=== PATIENT | male | born 1950 | race Caucasian/White ===

== ENCOUNTER 2016-12-14 04:11 | Inpatient (IN) | payer MEDICARE, BC ==
[~2016-12-14] VITALS: Ht 172.7 cm; Wt 81.0 kg
[2016-12-14] VITALS (11 sets, daily range): BP systolic 106–149; BP diastolic 59–74; PULSE 45–72; RESP 16–24; TEMP 97.2–97.9; O2SAT 94–100
[2016-12-14] MEDS ORDERED: SODIUM CHLORIDE 0.9% FLUSH 5 ML FLUSH IVF PRN (04:30)
[2016-12-14] MEDS ORDERED: ASPI81TA81 PO (04:46)
[2016-12-14] MEDS ORDERED: METO-309 PO (04:46)
[2016-12-14] MEDS ORDERED: LOSA50TA PO (04:46)
[2016-12-14] MEDS ORDERED: LIPI80TA PO (04:46)
[2016-12-14] MEDS ORDERED: DIOV80TA4 PO (04:46)
[2016-12-14] MEDS ORDERED: ASPI81TA19 (04:46)
[2016-12-14] MEDS ORDERED: ZETI10TA5 PO (04:46)
[2016-12-14 04:55] LABS: AUTOMATED NEUTROPHIL # 3.8 TH/MM3 (1.8-7.7); BASOPHIL % 0.5 % (0.0-2.0); EOSINOPHIL # 0.2 TH/MM3 (0-0.4); EOSINOPHIL % 2.3 % (0.0-4.0); HEMATOCRIT 42.5 % (39.0-51.0); HEMO FLAGS DIFF FINAL; LYMPH % 36.5 % (9.0-44.0); LYMPHOCYTE # 2.7 TH/MM3 (1.0-4.8); MEAN CELL VOLUME 95.7 FL (80.0-100.0); MEAN CORPUSCULAR HEMOGLOBIN 32.9 PG (27.0-34.0); MEAN CORPUSCULAR HGB CONC 34.4 % (32.0-36.0); MONO % 9.5 % (0.0-8.0); NEUT % 51.2 % (16.0-70.0); PLATELET COUNT 155 TH/MM3 (150-450); RED BLOOD COUNT 4.44 MIL/MM3 (4.50-5.90); RED CELL DISTRIBUTION WIDTH 14.1 % (11.6-17.2); WHITE BLOOD COUNT 7.4 TH/MM3 (4.0-11.0)
[2016-12-14 05:08] LABS: APTT (PATIENT) 25.2 SEC (24.3-30.1)
--- NOTE | 2016-12-14 05:09 | RADRPT ---
EXAM DATE/TIME: 12/14/2016 04:43 [facility] COMPARISON: No previous studies available for comparison. INDICATIONS : Shortness of breath. MEDICAL HISTORY : None. SURGICAL HISTORY : CABG. ENCOUNTER: Initial ACUITY: 1 day PAIN SCORE: 0/10 LOCATION: Bilateral chest FINDINGS: A single view of the chest demonstrates cardiomegaly. Mild basilar airspace disease and interstitial prominence. No significant effusion. No pneumothorax. Postoperative median sternotomy. CONCLUSION: 1. Cardiomegaly with mild interstitial edema. Mike Heck MD on December 14, 2016 at 5:07 Board Certified Radiologist. This report was verified electronically.
--- NOTE | 2016-12-14 05:21 | PD ---
HPI Chief Complaint: Respiratory Distress Time Seen by Provider: 04:25 Travel History International Travel<30 days: No Contact w/Intl Traveler<30days: [place] Traveled to: [facility], [place], [place] Traveled to known affect area: No History of Present Illness HPI The patient is a 66 year old male who presents to the [facility] emergency department with a history of shortness of breath that he reports began on Tuesday evening when he laid down to go to sleep. The patient reports that he is visiting from [place]. He denies having any problems breathing in the past. He does however have an extensive history of coronary artery disease. The patient reports that his symptoms began to improve throughout the day on Tuesday, however again he awoke from sound sleep with shortness of breath. He reports that he had a cough productive of brown sputum. He reports that he has a history of quadruple bypass in 1996 and 2 myocardial infarctions in 1998 with 2 stents placed at that time. He reports that he had a stress test on approximately 2 weeks ago that was reportedly unremarkable. He cannot recall when he last had a cardiac catheterization. He denies having any history of congestive heart failure, DVT, or PE. He reports that he does have some chronic lower extremity edema worse in the left leg related to the vein harvest for his bypass. The patient reports that his other medical history is significant for a month ago having flulike symptoms and a week ago having significant sinus congestion that he reports has since then improved with the use of Flonase. The patient is noted to have O2 saturations on room air of 93% . He denies having any recent weight changes. The patient reports that he did travel by RV to this area. The patient denies any recent fevers, neck pain, chest pain, abdominal pain, vomiting, diarrhea, urinary symptoms, or neurologic symptoms. [facility] Past Medical History Narrative Medical The patient's past medical history is significant for hypertension, coronary artery disease, 2 prior stents being placed, coronary artery bypass grafting, history of diverticulitis, history of being borderline diabetic, history of hyperlipidemia, history of PVCs Cardiovascular Problems: Yes (HTN, AR, STENTS, CAD, CABGX4) Diminished Hearing: No Hypertension: Yes Tetanus Vaccination: < 5 Years Influenza Vaccination: Yes (2016) Past Surgical History Narrative Surgical The patient's past surgical history is significant for coronary artery bypass grafting of 4 vessels in 1996, cardiac catheterization with 2 prior stents placed last in 1998, history of a cholecystectomy. Coronary Artery Bypass Graft: Yes (1996 x 4) Social History Alcohol Use: Yes (1 glass of wine per day) Tobacco Use: No Substance Use: No Allergies-Medications (Allergen,Severity, Reaction): Coded Allergies: No Known Allergies (Unverified , 12/14/16) Reported Meds & Prescriptions Reported Meds & Active Scripts Active Reported Aspir-81 (Aspirin) 81 Mg Tabdr 81 PO DAILY Aspir-Low (Aspirin) 81 Mg Tabdr Diovan (Valsartan) 80 Mg Tab 80 Mg PO DAILY Lopressor (Metoprolol Tartrate) 50 Mg Tab 50 Mg PO DAILY Losartan (Losartan Potassium) 50 Mg Tab 50 Mg PO DAILY Zetia (Ezetimibe) 10 Mg Tab 10 Mg PO DAILY Lipitor (Atorvastatin Calcium) 80 Mg Tab 80 Mg PO DAILY Review of Systems Except as stated in HPI: all other systems reviewed are Neg General / Constitutional: No: Fever Eyes: No: Visual changes HENT: Positive: Congestion, No: Headaches Cardiovascular: Positive: Dyspnea on exertion, Edema, No: Chest Pain or Discomfort, Diaphoresis Respiratory: Positive: Cough, Shortness of Breath Gastrointestinal: No: Nausea, Vomiting, Diarrhea, Abdominal Pain Genitourinary: No: Dysuria Musculoskeletal: No: Pain Skin: No Rash Neurologic: No: Weakness Psychiatric: No: Depression Endocrine: No: Polydipsia Hematologic/Lymphatic: No: Easy Bruising Physical Exam Narrative General: The patient is a well-developed well-nourished male in no acute distress. Head and Neck exam: Head is normocephalic atraumatic. Eyes: EOMI, pupils are equal round and reactive to light. Nose: Midline septum with pink mucous membranes Mouth: Dentition unremarkable. Moist mucus membranes. Posterior oropharynx is not erythematous. No tonsillar hypertrophy. Uvula midline. Airway patent. Neck: No palpable lymphadenopathy. No nuchal rigidity. No thyromegaly. Cardiovascular: Irregularly irregular with occasional PVCs noted on the monitor without murmurs , gallops, or rubs. No pulse deficit to the extremities and simultaneous auscultation and palpation of his radial artery. Lungs: Decreased breath sounds in the bases, otherwise clear to auscultation bilaterally. No wheezes, rhonchi, or rales. Abdomen: Soft, without tenderness to palpation in all 4 quadrants of the abdomen. No guarding, rebound, or rigidity. Normal bowel sounds are audible. Extremities: No clubbing or cyanosis. Trace pedal edema in the right lower extremity, 1+ pedal edema and old left lower extremity. 2+ pulses in all 4 extremities. No calf tenderness on palpation. Back: No costovertebral angle tenderness to palpation. Neurologic Exam: Grossly nonfocal. Skin Exam: No rash noted. Intact skin that is warm and dry. Data Data Last Documented VS Vital Signs Date Time Temp Pulse Resp B/P Pulse Ox O2 Delivery O2 Flow Rate FiO2 12/14/16 06:04 58 20 141/65 96 Nasal Cannula 2 12/14/16 04:17 97.9 Orders Complete Blood Count With Diff (12/14/16 04:25) Comprehensive Metabolic Panel (12/14/16 04:25) B-Type Natriuretic Peptide (12/14/16 04:25) Act Partial Throm Time (Ptt) (12/14/16 04:25) Prothrombin Time / Inr (Pt) (12/14/16 04:25) Magnesium (Mg) (12/14/16 04:25) Ckmb (Isoenzyme) Profile (12/14/16 04:25) Troponin I (12/14/16 04:25) Urinalysis - C+S If Indicated (12/14/16 04:25) Iv Access Insert/Monitor (12/14/16 04:25) Electrocardiogram (12/14/16 04:25) Ecg Monitoring (12/14/16 04:25) Oximetry (12/14/16 04:25) Oxygen Administration (12/14/16 04:25) Chest, Single Ap (12/14/16 04:25) Sodium Chloride 0.9% Flush (Ns Flush) (12/14/16 04:30) Lipase (12/14/16 04:25) D-Dimer (12/14/16 04:35) Furosemide Inj (Lasix Inj) (12/14/16 06:15) Aspirin Chew (Aspirin Chew) (12/14/16 06:15) Nitroglycerin 2% Oint (Nitroglycerin 2% (12/14/16 06:15) Ct Pulmonary Angiogram (12/14/16 06:06) Iohexol 350 Inj (Omnipaque 350 Inj) (12/14/16 06:35) Acetaminophen (Tylenol) (12/14/16 07:00) Labs Laboratory Tests Test 12/14/16 12/14/16 04:35 06:00 White Blood Count 7.4 TH/MM3 Red Blood Count 4.44 MIL/MM3 Hemoglobin 14.6 GM/DL Hematocrit 42.5 % Mean Corpuscular Volume 95.7 FL Mean Corpuscular Hemoglobin 32.9 PG Mean Corpuscular Hemoglobin 34.4 % Concent Red Cell Distribution Width 14.1 % Platelet Count 155 TH/MM3 Mean Platelet Volume 9.6 FL Neutrophils (%) (Auto) 51.2 % Lymphocytes (%) (Auto) 36.5 % Monocytes (%) (Auto) 9.5 % Eosinophils (%) (Auto) 2.3 % Basophils (%) (Auto) 0.5 % Neutrophils # (Auto) 3.8 TH/MM3 Lymphocytes # (Auto) 2.7 TH/MM3 Monocytes # (Auto) 0.7 TH/MM3 Eosinophils # (Auto) 0.2 TH/MM3 Basophils # (Auto) 0.0 TH/MM3 CBC Comment DIFF FINAL Differential Comment Prothrombin Time 11.0 SEC Prothromb Time International 1.0 RATIO Ratio Activated Partial 25.2 SEC Thromboplast Time D-Dimer Quantitative (PE/DVT) 1.28 MG/L FEU Sodium Level 144 MEQ/L Potassium Level 3.7 MEQ/L Chloride Level 110 MEQ/L Carbon Dioxide Level 24.9 MEQ/L Anion Gap 9 MEQ/L Blood Urea Nitrogen 15 MG/DL Creatinine 0.93 MG/DL Estimat Glomerular Filtration 82 ML/MIN Rate Random Glucose 109 MG/DL Calcium Level 8.0 MG/DL Magnesium Level 1.6 MG/DL Total Bilirubin 1.3 MG/DL Aspartate Amino Transf 18 U/L (AST/SGOT) Alanine Aminotransferase 39 U/L (ALT/SGPT) Alkaline Phosphatase 81 U/L Total Creatine Kinase 56 U/L Troponin I LESS THAN 0.02 NG/ML B-Type Natriuretic Peptide 441 PG/ML Total Protein 6.8 GM/DL Albumin 3.4 GM/DL Lipase 142 U/L Urine Color YELLOW Urine Turbidity CLEAR Urine pH 5.0 Urine Specific [place] 1.022 Urine Protein NEG mg/dL Urine Glucose (UA) NEG mg/dL Urine Ketones NEG mg/dL Urine Occult Blood NEG Urine Nitrite NEG Urine Bilirubin NEG Urine Urobilinogen LESS THAN 2.0 MG/DL Urine Leukocyte Esterase NEG Urine RBC LESS THAN 1 /hpf Urine WBC 1 /hpf Urine Hyaline Casts 1 /lpf Urine Mucus FEW /lpf Microscopic Urinalysis Comment CULT NOT INDICATED MDM Medical Decision Making Medical Screen Exam Complete: Yes Emergency Medical Condition: Yes Medical Record Reviewed: Yes Interpretation(s) Last Impressions CT Angiography 12/14/16605 Signed Impressions: Service Date/Time: Wednesday, December 14, 2016 06:28 - CONCLUSION: 1. Negative for pulmonary embolus. 2. Small bilateral pleural effusions. 3. Mild to moderate centrilobular emphysema. 4. Cardiomegaly. Mike Heck MD Chest X-Ray 12/14/16 0425 Signed Impressions: Service Date/Time: Wednesday, December 14, 2016 04:43 - CONCLUSION: 1. Cardiomegaly with mild interstitial edema. Mike Heck MD Differential Diagnosis Congestive heart failurenew onset, versus acute coronary syndrome, versus pneumonia, versus pulmonary embolism Narrative Course During the course of the patients emergency department visit, the patients history, examination, and differential diagnosis were reviewed with the patient. The patient had IV access obtained and blood work sent for analysis. The patient was placed on a ekg monitor tech with oximetry and blood pressure monitoring. An EKG was done on arrival. The patient's EKG shows a sinus rhythm with frequent premature ventricular complexes, no acute ST segment elevation or depression, T waves are inverted in aVL. The patient was placed on 2 L nasal cannula O2. The patient was provided aspirin 162 mg by mouth 1. The patients laboratory studies were reviewed and remarkable for a white count of 7.4, hemoglobin 14.6, platelets 155, 9.5 monocytes, CMP is remarkable for a chloride of 110, glucose 109, calcium 8.0, total bilirubin 1.3, initial set of cardiac enzymes are negative, BNP is 441, lipase 142, PT PTT unremarkable, d- dimer 1.28, therefore CTA to rule out PE was ordered. Radiology studies were reviewed and remarkable for a chest x-ray that shows cardiomegaly with mild interstitial edema. CTA shows no evidence of PE, small bilateral pleural effusions, mild to moderate centrilobar edema, cardiomegaly. The patients results were discussed with the patient, including the plan of care. I explained that further testing and/ or monitoring is indicated based on the patients history, examination, and/ or laboratory findings. Therefore, I recommended admission for additional evaluation. The patient expressed understanding and was agreeable with this plan. The patient was admitted to the hospital in stable condition and [facility] Physician Communication Physician Communication The patient's case was discussed with Dr. Stephenson, who did agree to admit the patient for further evaluation and treatment at this time. Diagnosis Primary Impression: New onset of congestive heart failure Admitting Information Admitting Physician Requests: Case Management Jeni Murray MD Dec 14, 2016 05:21
[2016-12-14 05:22] LABS: ALT (GPT) 39 U/L (12-78); ANION GAP 9 MEQ/L (5-15); AST (GOT) 18 U/L (15-37); BICARBONATE 24.9 MEQ/L (21.0-32.0); BLOOD UREA NITROGEN 15 MG/DL (7-18); CHLORIDE 110 MEQ/L (98-107); GLOMERULAR FILTRATION RATE 82 ML/MIN (>89); MAGNESIUM 1.6 MG/DL (1.5-2.5); POTASSIUM 3.7 MEQ/L (3.5-5.1); SODIUM (NA) 144 MEQ/L (136-145)
[2016-12-14 05:26] LABS: ALKALINE PHOSPHATASE 81 U/L (45-117); TOTAL BILIRUBIN ADULT 1.3 MG/DL (0.2-1.0)
[2016-12-14 05:29] LABS: CREATINE KINASE 56 U/L (39-308)
[2016-12-14] MEDS ORDERED: ASPIRIN 81 MG CHEW TAB CHEW ONE (06:15)
[2016-12-14] MEDS ORDERED: FUROSEMIDE 40 MG/4 ML VIAL IV PUSH ONE ×2 (06:15→20:30)
[2016-12-14] MEDS ORDERED: NITROGLYCERIN 2% OINT 1 GM PACKET TOPICAL ONE (06:15)
[2016-12-14 06:28] LABS: BLOOD, URINE NEG (NEG); COMMENT (UR) CULT NOT INDICATED; CULTURE IF INDICATED CULT NOT INDICATED; GLUCOSE,URINE NEG (NEG); HYALINE CAST, URINE 1 /lpf (RARE); KETONE, URINE NEG (NEG); MUCUS URINE FEW /lpf (OCC); NITRITE,URINE NEG (NEG); URINE COLOR YELLOW (YELLW/STRAW)
[2016-12-14] MEDS ORDERED: IOHEXOL 350 MG/ML 10 ML VIAL (for RAD DIAG) IV ONE (06:35)
--- NOTE | 2016-12-14 06:51 | RADRPT ---
EXAM DATE/TIME: 12/14/2016 06:28 [facility] COMPARISON: No previous studies available for comparison. INDICATIONS : Short of breath for two days. IV CONTRAST: 70 cc Omnipaque 350 (iohexol) IV RADIATION DOSE: 23.36 CTDIvol (mGy) MEDICAL HISTORY : Hypertension. Myocardial infarction. cad SURGICAL HISTORY : CABG stents ENCOUNTER: Initial ACUITY: 2 days PAIN SCALE: 0/10 LOCATION: chest TECHNIQUE: Volumetric scanning of the chest was performed using a pulmonary embolism protocol MIP images were re constructed. Using automated exposure control and adjustment of the mA and/or kV according to patien t size, radiation dose was kept as low as reasonably achievable to obtain optimal diagnostic quality images. FINDINGS: No filling defects are seen to suggest pulmonary embolic disease. Severe coronary calcifications. Mil d to moderate emphysema present. Minimal basal atelectasis. Small bilateral pleural effusions with so me loculated fluid in the lower right major fissure. No acute findings in the upper abdomen. CONCLUSION: 1. Negative for pulmonary embolus. 2. Small bilateral pleural effusions. 3. Mild to moderate centrilobular emphysema. 4. Cardiomegaly. Mike Heck MD on December 14, 2016 at 6:46 Board Certified Radiologist. This report was verified electronically.
[2016-12-14] MEDS ORDERED: ACETAMINOPHEN 325 MG TAB PO ONE (07:00)
--- NOTE | 2016-12-14 07:57 | HHI.HP ---
[facility] Phys[facility] Non-Staff Admission Diagnosis New onset CHF Diagnoses: (1) New onset of congestive heart failure Diagnosis: Principal Chief Complaint: shortness of breath Travel History International Travel<30 Days: No Contact w/Intl Traveler <30 Da: [place] Traveled to: [facility], [facility], [facility] Traveled to Known Affected Are: No History of Present Illness patient is a 66 y/o male with history of CAD- s/p CABG and stent placement who presented to ER with sob which started three days ago. he reported orthopnea and PND. he denies any fever, chills or cough although he says that he was sick with flu last week. he denies any recent weight gain but he says that he noticed worsening swelling of the legs recently. he denies any chest pain. he says that he had a stress test two weeks ago which was reportedly normal. 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 Review of Systems Constitutional: DENIES: Fever, Weight loss, Chills, Night Sweats Eyes: DENIES: Blurred vision, Diplopia, Vision loss, Double Vision Ears, nose, mouth, throat: DENIES: Tinnitus, Vertigo, Throat pain, Epistaxis Respiratory: DENIES: Apneas, Cough, Snoring, Wheezing, Hemoptysis, Sputum production, Shortness of breath Cardiovascular: COMPLAINS OF: PND, Lower Extremity Edema, Orthopnea, DENIES: Chest pain, Palpitations, Syncope, Dyspnea on Exertion, Claudication Gastrointestinal: DENIES: Abdominal pain, Black stools, Bloody stools, Constipation, Diarrhea, Nausea, Vomiting, Difficulty Swallowing, Anorexia Genitourinary: DENIES: Urinary frequency, Urgency, Hematuria, Dysuria Musculoskeletal: DENIES: Joint pain, Muscle aches, Stiffness, Joint Swelling Integumentary: DENIES: Rash Neurologic: DENIES: Abnormal gait, Headache, Localized weakness, Paresthesias, Seizures, Speech Problems, Tremor, Poor Balance Psychiatric: DENIES: Anxiety, Confusion, Mood changes, Depression, Hallucinations, Agitation, Suicidal Ideation, Homicidal Ideation, Delusions Past Family Social History Past Medical History CAD hypertension diverticulitis Past Surgical History CABG/ stent placement cholecystectomy Reported Medications Aspir-81 (Aspirin) 81 Mg Tabdr 81 PO DAILY Aspir-Low (Aspirin) 81 Mg Tabdr Diovan (Valsartan) 80 Mg Tab 80 Mg PO DAILY Lopressor (Metoprolol Tartrate) 50 Mg Tab 50 Mg PO DAILY Losartan (Losartan Potassium) 50 Mg Tab 50 Mg PO DAILY Zetia (Ezetimibe) 10 Mg Tab 10 Mg PO DAILY Lipitor (Atorvastatin Calcium) 80 Mg Tab 80 Mg PO DAILY Allergies: Coded Allergies: No Known Allergies (Unverified , 12/14/16) Active Ordered Medications Current Medications IV Flush (NS Flush) 2 ml UNSCH PRN IVF FLUSH AFTER USING IV ACCESS; Start 12/14 at 04:30 Furosemide (Lasix Inj) 60 mg ONCE ONCE IV PUSH Last administered on 12/14/16 06:44; Start 12/14/16 at 06:15; Stop 12/14/16 at 06:16; Status DC Aspirin (Aspirin Chew) 162 mg ONCE ONCE CHEW Last administered on 12/14/16 06 :44; Start 12/14/16 at 06:15; Stop 12/14/16 at 06:16; Status DC Nitroglycerin (Nitroglycerin 2% Oint) 1 inch ONCE ONCE TOPICAL Last administered on 12/14/16 06:49; Start 12/14/16 at 06:15; Stop 12/14/16 at 06:16 ; Status DC Iohexol (Omnipaque 350 Inj) 70 ml STK-MED ONCE IV ; Start 12/14/16 at 06:35; Stop 12/14/16 at 06:36; Status DC Acetaminophen (Tylenol) 650 mg ONCE ONCE PO Last administered on 12/14/16 07: 08; Start 12/14/16 at 07:00; Stop 12/14/16 at 07:01; Status DC Family History diabetes in father. Social History quit smoking long time ago. Physical Exam Vital Signs Vital Signs Date Time Temp Pulse Resp B/P Pulse Ox O2 Delivery O2 Flow Rate FiO2 12/14/16 06:04 58 20 141/65 96 Nasal Cannula 2 12/14/16 04:48 96 Nasal Cannula 2 12/14/16 04:48 24 94 Nasal Cannula 12/14/16 04:17 97.9 72 16 140/74 95 Room Air Physical Exam GENERAL: This is a well-nourished, well-developed patient, in no apparent distress. SKIN: No rashes, ecchymoses or lesions. Cool and dry. HEAD: Atraumatic. Normocephalic. No temporal or scalp tenderness. EYES: Pupils equal round and reactive. Extraocular motions intact. No scleral icterus. No injection or drainage. ENT: Nose without bleeding, purulent drainage or septal hematoma. Throat without erythema, tonsillar hypertrophy or exudate. Uvula midline. Airway patent. NECK: Trachea midline. No JVD or lymphadenopathy. Supple, nontender, no meningeal signs. CARDIOVASCULAR: Regular rate and rhythm without murmurs, gallops, or rubs. RESPIRATORY: Clear to auscultation. Breath sounds equal bilaterally. No wheezes , rales, or rhonchi. GASTROINTESTINAL: Abdomen soft, non-tender, nondistended. No hepato-splenomegaly , or palpable masses. No guarding. MUSCULOSKELETAL: Extremities with mild bilateral pedal edema. NEUROLOGICAL: Awake and alert. Cranial nerves II through XII intact. Motor and sensory grossly within normal limits. Five out of 5 muscle strength in all muscle groups. Normal speech. Laboratory Laboratory Tests Test 12/14/16 12/14/16 04:35 06:00 White Blood Count 7.4 Red Blood Count 4.44 Hemoglobin 14.6 Hematocrit 42.5 Mean Corpuscular Volume 95.7 Mean Corpuscular Hemoglobin 32.9 Mean Corpuscular Hemoglobin 34.4 Concent Red Cell Distribution Width 14.1 Platelet Count 155 Mean Platelet Volume 9.6 Neutrophils (%) (Auto) 51.2 Lymphocytes (%) (Auto) 36.5 Monocytes (%) (Auto) 9.5 Eosinophils (%) (Auto) 2.3 Basophils (%) (Auto) 0.5 Neutrophils # (Auto) 3.8 Lymphocytes # (Auto) 2.7 Monocytes # (Auto) 0.7 Eosinophils # (Auto) 0.2 Basophils # (Auto) 0.0 CBC Comment DIFF FINAL Differential Comment Prothrombin Time 11.0 Prothromb Time International 1.0 Ratio Activated Partial 25.2 Thromboplast Time D-Dimer Quantitative (PE/DVT) 1.28 Sodium Level 144 Potassium Level 3.7 Chloride Level 110 Carbon Dioxide Level 24.9 Anion Gap 9 Blood Urea Nitrogen 15 Creatinine 0.93 Estimat Glomerular Filtration 82 Rate Random Glucose 109 Calcium Level 8.0 Magnesium Level 1.6 Total Bilirubin 1.3 Aspartate Amino Transf 18 (AST/SGOT) Alanine Aminotransferase 39 (ALT/SGPT) Alkaline Phosphatase 81 Total Creatine Kinase 56 Troponin I LESS THAN 0.02 B-Type Natriuretic Peptide 441 Total Protein 6.8 Albumin 3.4 Lipase 142 Urine Color YELLOW Urine Turbidity CLEAR Urine pH 5.0 Urine Specific [place] 1.022 Urine Protein NEG Urine Glucose (UA) NEG Urine Ketones NEG Urine Occult Blood NEG Urine Nitrite NEG Urine Bilirubin NEG Urine Urobilinogen LESS THAN 2.0 Urine Leukocyte Esterase NEG Urine RBC LESS THAN 1 Urine WBC 1 Urine Hyaline Casts 1 Urine Mucus FEW Microscopic Urinalysis Comment CULT NOT INDICATED Result Diagram: 12/14/1643412/14/[address] Angiography 12/14/16605 Signed Impressions: Service Date/Time: Wednesday, December 14, 2016 06:28 - CONCLUSION: 1. Negative for pulmonary embolus. 2. Small bilateral pleural effusions. 3. Mild to moderate centrilobular emphysema. 4. Cardiomegaly. Mike Heck MD Chest X-Ray 12/14/16424 Signed Impressions: Service Date/Time: Wednesday, December 14, 2016 04:43 - CONCLUSION: 1. Cardiomegaly with mild interstitial edema. Mike Heck MD EKG; sinus rhythm with PVC's Assessment and Plan Assessment and Plan A/P - CHF- new onset continue with IV diuretics- monitor I/O- continue BB and losartan- check echo and will consult cardiology -CAD- s/p CABG and stent placement continue aspirin, statin, BB and losartan his cardilogist; ) -hypertension; continue home meds- will monitor and adjust the regimen as needed -DVT prophylaxis with lovenox Discussed Condition With ER physician and the patient. Bradley Marroquin MD Dec 14, 2016 07:57
[2016-12-14] MEDS ORDERED: ACETAMINOPHEN 325 MG TAB PO PRN (08:00)
[2016-12-14] MEDS ORDERED: RESP: ALBUTEROL 1.25 MG/3 ML NEB (PRN) NEB (08:00)
[2016-12-14 08:44] LABS: BICARBONATE 24.8 MEQ/L (21.0-32.0)
[2016-12-14] MEDS ORDERED: LOSARTAN 50 MG TAB PO SCH (09:00)
[2016-12-14] MEDS ORDERED: METOPROLOL TARTRATE 50 MG TAB PO SCH (09:00)
[2016-12-14] MEDS: POTASSIUM CHLORIDE 20 MEQ CONTROLLED RELEASE TAB PO SCH (10:05)
[2016-12-14] MEDS: ATORVASTATIN 80 MG TAB PO SCH (10:05)
[2016-12-14] MEDS: ENOXAPARIN SODIUM 40 MG/0.4 ML SYRINGE SQ SCH (10:05)
[2016-12-14] MEDS: EZETIMIBE 10 MG TAB PO SCH (10:05)
--- NOTE | 2016-12-14 10:09 | MB ---
cc: MAY BARTON MD Corrected Copy: 02/25/17 DATE OF CONSULTATION 12/14/2016 INDICATION Congestive heart failure. HISTORY OF PRESENT ILLNESS This is a very nice 66-year-old gentleman who traveled down from [place] who now presents with progressive shortness of breath to [facility]. The patient has prior history of known heart disease, bypass in 1996 followed by percutaneous intervention a few years later. His last heart catheterization was apparently in 2002. He has had annual stress tests, the most recent about two weeks ago which was reportedly normal. He follows with Dr. Thompson of Cardiology up in [place]. The patient has gone on a cruise to [place], [facility] and then stop through [facility] for the [employer] races, was due to a head back towards [place] and then [place], leaving tomorrow. Over the course of the past few days he has noticed progressive shortness of breath with exertion and lying flat. He usually has a very good diet and he is compliant with all his meds. With the cruise and his vacation, he has been eating out and heavier salt intake. He came into the emergency department. BNP was elevated. His chest x-ray shows pulmonary edema. He got IV diuretic. He has been diuresing well and symptomatically improving. He denies any recent chest pain. PAST MEDICAL HISTORY 1. Coronary disease. 2. Bypass surgery. He has a BLACKWELL to the diagonal, saphenous vein graft to the distal left anterior descending coronary, saphenous vein graft to the obtuse marginal branch. 3. Hyperlipidemia. 4. Hypertension. 5. Diverticulitis. MEDICATIONS 1. Aspirin. 2. Diovan. 3. Lopressor. 4. Losartan. 5. Zetia. 6. Lipitor. ALLERGIES No known drug allergies. SOCIAL HISTORY Denies any tobacco, alcohol, drug use. FAMILY HISTORY Denies any family history of early coronary artery disease, sudden cardiac . REVIEW OF SYSTEMS A 12-point review of systems is informed, negative unless otherwise noted in the History of Present Illness. PHYSICAL EXAMINATION VITAL SIGNS: Temperature 97, pulse is 58, blood pressure 141/65 mmHg. GENERAL: Alert and oriented x 3, in no acute distress. HEENT: Exam shows pupils reactive to light and accommodation. Extraocular movements are intact. NECK: No elevation in jugular venous distention. No thyromegaly. No lymphadenopathy. No carotid bruits. LUNGS: Clear to auscultation bilaterally. CARDIOVASCULAR EXAM: Regular rate and rhythm, bradycardic. No murmurs, rubs or gallops. ABDOMINAL EXAM: Nontender, nondistended. Good bowel sounds. No hepatosplenomegaly. EXTREMITIES: No clubbing, cyanosis or edema. Good peripheral pulses. NEUROLOGIC: Cranial nerves intact. Motor and sensory grossly intact. LABORATORY DATA WBC 7.4 hemoglobin is 14.6, platelet count is 155. INR is 1. Sodium 143, potassium 4.0, chloride is 109, BUN is 14, creatinine 0.89. Troponin 0.02. BNP is 441. ELECTROCARDIOGRAM Sinus rhythm, nonspecific T-wave changes. ASSESSMENT 1. Congestive heart failure, acute systolic. 2. History of coronary disease, prior bypass surgery and percutaneous intervention 3. Hypertension, hyperlipidemia. PLAN Symptomatically he is improving with diuresis. His clinical presentation is consistent with volume overload likely secondary to increased sodium intake. I discussed the case in detail with his licensed direct entry midwife, Dr. Thompson, in [place] who knows him for over 20 years. His last stress test did not show any significant ischemic defects about 2 weeks ago. His ejection fraction was reported at 41% at that time. He has been compliant with his meds. He has not had any angina. His troponin is negative. Electrocardiogram is relatively unremarkable. We will monitor him closely, continue with diuresis. I have discussed education with monitoring daily weights and sodium intake. We will see how things go over the course of his early hospitalization. I was hoping that, if symptomatically he was improving, that he may be able to be discharged in the next 24-48 hours so that he can head home. After discussion with his licensed direct entry midwife in [place], Dr. Thompson feels strongly that he would like to pursue cardiac catheterization prior to his long trip. I will have this discussion with the family and we will make a decision tomorrow whether or not we will pursue that avenue. He has recently gotten a contrast load with the CT scan and with the diuresis I do not want to cause any kidney damage. MD DIANE Martinez/JAYE /9:32 AM /9:55 AM MTDD
--- NOTE | 2016-12-14 11:57 | EC ---
Study Study Date:12/14/2016 STUDY CONCLUSIONS SUMMARY - Left ventricle: The cavity size was at the upper limits of normal. Wall thickness was normal. Systolic function was mildly reduced. The estimated ejection fraction was in the range of 45% to 50%. Hypokinesis of the mid-distal inferior myocardium. Doppler parameters are consistent with abnormal left ventricular relaxation (grade 1 diastolic dysfunction). - Aortic valve: Mild regurgitation. Valve area: 2.34cm^2 (Vmax). - Mitral valve: Mild regurgitation. - Tricuspid valve: Mild regurgitation. If LV function is below 40, please consider prescribing an ACEI or ARB or document rationale for non-use. PROCEDURE DATA STUDY STATUS: Elective. Procedure: Transthoracic echocardiography. Image quality was good. Scanning was performed from the parasternal, apical, and subcostal acoustic windows. Study completion: The patient tolerated the procedure well. Transthoracic echocardiography. M-mode, complete 2D, complete spectral Doppler, and color Doppler. Patient status: Inpatient. CARDIAC ANATOMY LEFT VENTRICLE: The cavity size was at the upper limits of normal. Wall thickness was normal. Systolic function was mildly reduced. The estimated ejection fraction was in the range of 45% to 50%. Regional wall motion abnormalities: Hypokinesis of the mid-distal inferior myocardium. Doppler parameters are consistent with abnormal left ventricular relaxation (grade 1 diastolic dysfunction). AORTIC VALVE: Trileaflet; mildly thickened, mildly calcified leaflets. Doppler: Transvalvular velocity was within the normal range. There was no stenosis. Mild regurgitation. Valve area: 2.34cm^2 (Vmax). AORTA: Aortic root: The aortic root was normal in size. MITRAL VALVE: Structurally normal valve. Doppler: Transvalvular velocity was within the normal range. There was no evidence for stenosis. Mild regurgitation. Peak gradient: 3mm Hg (D). LEFT ATRIUM: The atrium was normal in size. RIGHT VENTRICLE: The cavity size was normal. Wall thickness was normal. PULMONIC VALVE: Doppler: Transvalvular velocity was within the normal range. There was no evidence for stenosis. No regurgitation. TRICUSPID VALVE: Structurally normal valve. Doppler: Transvalvular velocity was within the normal range. Mild regurgitation. PULMONARY ARTERY: The main pulmonary artery was normal-sized. Systolic pressure was within the normal range. RIGHT ATRIUM: The atrium was normal in size. PERICARDIUM: There was no pericardial effusion. SYSTEMIC VEINS: Inferior vena cava: The vessel was normal in size. BASIC MEASUREMENTS ADULT Normal Left ventricle LV internal dimension, ED, chordal level, 48.5 mm 43-52 PLAX LV internal dimension, ES, chordal level, *41.3 mm 23-38 PLAX Fractional shortening, chordal level, PLAX *15 % >29 LV posterior wall thickness, ED 8.01 mm IVS/LVPW ratio, ED 1.04 <1.3 Ventricular septum Septal thickness, ED 8.35 mm Aortic valve Leaflet separation 18 mm 15-26 BASIC MEASUREMENTS ADULT Normal Aortic valve Leaflet separation 18 mm 15-26 Aorta Root diameter, ED 23 mm 20-37 Left atrium Anterior-posterior dimension, ES 35 mm 19-40 LA/aortic root ratio 1.52 DOPPLER MEASUREMENTS ADULT Normal Aortic valve Peak velocity, S 135 cm/s Valve area, Vmax 2.34 cm^2 Regurgitant velocity, ED 344 cm/s Regurgitant deceleration 1290 cm/s^2 Regurgitant pressure half-time 820 ms Regurgitant gradient, ED 47 mm Hg Mitral valve Peak E-wave velocity 90.8 cm/s Peak A-wave velocity 108 cm/s Deceleration time *292 ms 150-230 Peak gradient, D 3 mm Hg Peak E/A ratio 0.8 Maximal regurgitant velocity 200 cm/s Pulmonic valve Peak velocity, S 92.3 cm/s Regurgitant velocity, ED 148 cm/s LEGEND: Mean values are shown as u=mean value. Asterisk (*) villalobos values outside specified normal range. Prepared and signed by Edouard Bird [id number]
[2016-12-14] MEDS ORDERED: ACETAMINOPHEN/HYDROcodone 325 MG/5 MG TAB PO PRN (13:30)
--- NOTE | 2016-12-14 14:37 | EKG ---
Date Performed: 12/14/2016 Time Performed: 04:33:13 PTAGE: 66 years EKG: Sinus rhythm WITH FREQUENT VENTRICULAR PREMATURE COMPLEXES POSSIBLE LEFT ATRIAL ENLARGEMENT NONSPECIFIC ST & T-WA VE ABNORMALITY ABNORMAL ECG NO PREVIOUS TRACING DOCTOR: Abdirashid Millard Interpretating Date/Time 12/14/2016 14:34:32
[2016-12-15] VITALS (15 sets, daily range): BP systolic 115–153; BP diastolic 58–71; PULSE 55–73; RESP 18–22; TEMP 96.6–98.2; O2SAT 94–98
[2016-12-15] MEDS ORDERED: FUROSEMIDE 40 MG/4 ML VIAL IV PUSH ONE (01:45)
--- NOTE | 2016-12-15 08:00 | PD.CARD.PN ---
Subjective Subjective Remarks feeling better this morning with improved SOB. No chest pain or palpitations. Objective Medications Current Medications Medications (Trade) Dose Ordered Sig/Miky Route Start Time Stop Time Status Last Admin (NS Flush) 2 ml UNSCH PRN IVF 12/14/16 04:30 (KCl) 20 meq DAILY PO 12/14/16 09:00 12/14/16 10:05 (Lipitor) 80 mg DAILY PO 12/14/16 09:00 12/14/16 10:05 (Zetia) 10 mg DAILY PO 12/14/16 09:00 12/14/16 10:05 (Ecotrin Ec) 81 mg DAILY PO 12/15/16 09:00 (Lovenox Inj) 40 mg Q24H SQ 12/14/16 09:00 12/14/16 10:05 (Tylenol) 650 mg Q4H PRN PO 12/14/16 08:00 (Lasix Inj) 40 mg BID IV PUSH 12/15/16 21:00 (Cozaar) 100 mg DAILY PO 12/15/16 09:00 (Lopressor) 25 mg DAILY PO 12/15/16 09:00 ([place] 5-325 Mg) 1 tab Q4H PRN PO 12/14/16 13:30 12/14/16 13:42 Vital Signs / I&O Vital Signs Date Time Temp Pulse Resp B/P Pulse Ox O2 Delivery O2 Flow Rate FiO2 12/15/16 04:00 98.2 65 20 153/71 97 12/15/16 00:00 97.8 66 20 125/70 98 12/14/16 22:34 45 137/65 96 12/14/16 20:35 70 12/14/16 20:00 97.2 53 20 106/59 97 12/14/16 16:00 97.5 55 20 119/68 95 12/14/16 15:13 18 12/14/16 15:09 70 18 145/71 100 Room Air 12/14/16 12:07 68 18 143/67 98 Room Air 12/14/16 11:00 70 20 99 Room Air 12/14/16 10:05 69 20 149/73 96 Nasal Cannula 2 12/14/16 08:08 18 I/O 12/14/16 12/14/16 12/14/16 12/15/16 12/15/16 12/15/16 07:00 15:00 23:00 07:00 15:00 23:00 Intake Total 240 ml Output Total 600 ml Balance -360 ml Intake Oral 240 ml IV Total 0 ml Output Urine Total 600 ml # Voids 3 # Bowel Movements 0 0 Physical Exam GENERAL: SKIN: Warm and dry. EYES: Pupils equal and round. ENT: No nasal bleeding or discharge. NECK: Trachea midline. No JVD. CARDIOVASCULAR: Regular rate and rhythm. No murmurs RESPIRATORY: No accessory muscle use. Clear to auscultation. Breath sounds equal bilaterally. GASTROINTESTINAL: Abdomen soft, non-tender, nondistended. MUSCULOSKELETAL: Extremities without clubbing, cyanosis, or edema. No obvious deformities. NEUROLOGICAL: Awake and alert. No obvious cranial nerve deficits. Motor grossly within normal limits Normal speech. PSYCHIATRIC: Appropriate mood and affect; insight and judgment normal. Laboratory Laboratory Tests Test 12/14/16 12/14/16 12/14/16 08:06 10:30 18:00 Sodium Level 143 MEQ/L Potassium Level 4.0 MEQ/L Chloride Level 109 MEQ/L Carbon Dioxide Level 24.8 MEQ/L Anion Gap 9 MEQ/L Blood Urea Nitrogen 14 MG/DL Creatinine 0.89 MG/DL Estimat Glomerular Filtration 86 ML/MIN Rate Random Glucose 112 MG/DL Calcium Level 8.3 MG/DL Troponin I LESS THAN 0.02 LESS THAN 0.02 NG/ML NG/ML Imaging Last Impressions CT Angiography 12/14/16 0606 Signed Impressions: Service Date/Time: Wednesday, December 14, 2016 06:28 - CONCLUSION: 1. Negative for pulmonary embolus. 2. Small bilateral pleural effusions. 3. Mild to moderate centrilobular emphysema. 4. Cardiomegaly. Mike Heck MD Chest X-Ray 12/14/16 0908 Signed Impressions: Service Date/Time: Wednesday, December 14, 2016 04:43 - CONCLUSION: 1. Cardiomegaly with mild interstitial edema. Mike Heck MD Assessment and Plan Problem List: (1) New onset of congestive heart failure Assessment and Plan CHF- diuresing well. tele reviewed; a 12 beat run of wide complex tachycardia noted at approximately 7:50pm last night is found to be artifact and non- concerning. Family wishes to go forward with cardiac catheterization. Procedure scheduled for noon today. Farida Fuentes Dec 15, 2016 08:00
[2016-12-15] MEDS ORDERED: LOSARTAN 50 MG TAB PO SCH (09:00)
[2016-12-15] MEDS ORDERED: FUROSEMIDE 40 MG/4 ML VIAL IV PUSH SCH ×2 (09:00→21:00)
[2016-12-15] MEDS ORDERED: ASPIRIN EC 81 MG TABEC PO SCH (09:00)
[2016-12-15] MEDS ORDERED: METOPROLOL TARTRATE 25 MG TAB PO SCH (09:00)
[2016-12-15] MEDS: ENOXAPARIN SODIUM 40 MG/0.4 ML SYRINGE SQ SCH (09:00)
[2016-12-15] MEDS: POTASSIUM CHLORIDE 20 MEQ CONTROLLED RELEASE TAB PO SCH (10:14)
[2016-12-15] MEDS: EZETIMIBE 10 MG TAB PO SCH (10:15)
[2016-12-15] MEDS: ATORVASTATIN 80 MG TAB PO SCH (10:15)
--- NOTE | 2016-12-15 10:20 | HHI.PR ---
Subjective Remarks looks and feels much better today. sob and leg swelling has much improved. no chest pain. hoping that he would go home today. awaiting cardiac cath. Objective Vitals Vital Signs Date Time Temp Pulse Resp B/P Pulse Ox O2 Delivery O2 Flow Rate FiO2 12/15/16 08:00 98.0 73 18 144/63 94 12/15/16 04:00 98.2 65 20 153/71 97 12/15/16 00:00 97.8 66 20 125/70 98 12/14/16 22:34 45 137/65 96 12/14/16 20:35 70 12/14/16 20:00 97.2 53 20 106/59 97 12/14/16 16:00 97.5 55 20 119/68 95 12/14/16 15:13 18 12/14/16 15:09 70 18 145/71 100 Room Air 12/14/16 12:07 68 18 143/67 98 Room Air 12/14/16 11:00 70 20 99 Room Air I/O 12/14/16 12/14/16 12/14/16 12/15/16 12/15/16 12/15/16 07:00 15:00 23:00 07:00 15:00 23:00 Intake Total 240 ml Output Total 600 ml Balance -360 ml Intake Oral 240 ml IV Total 0 ml Output Urine Total 600 ml # Voids 3 # Bowel Movements 0 0 Result Diagram: 12/14/16 0435 12/14/16 [address] Angiography 12/14/16 0606 Signed Impressions: Service Date/Time: Wednesday, December 14, 2016 06:28 - CONCLUSION: 1. Negative for pulmonary embolus. 2. Small bilateral pleural effusions. 3. Mild to moderate centrilobular emphysema. 4. Cardiomegaly. Mike Heck MD Chest X-Ray 12/14/16 0425 Signed Impressions: Service Date/Time: Wednesday, December 14, 2016 04:43 - CONCLUSION: 1. Cardiomegaly with mild interstitial edema. Mike Heck MD Objective Remarks GENERAL: This is a well-nourished, well-developed patient, in no apparent distress. CARDIOVASCULAR: Regular rate and regular rhythm without murmurs, gallops, or rubs. RESPIRATORY: Clear to auscultation. Breath sounds equal bilaterally. No wheezes , rales, or rhonchi. GASTROINTESTINAL: Abdomen soft, non-tender, nondistended. Normal, active bowel sounds MUSCULOSKELETAL: Extremities without clubbing, cyanosis, or edema. NEURO: Alert & Oriented x4 to person, place, time, situation. Moves all ext x4 Medications and IVs Current Medications IV Flush (NS Flush) 2 ml UNSCH PRN IVF FLUSH AFTER USING IV ACCESS; Start 12/14 at 04:30 Furosemide (Lasix Inj) 60 mg ONCE ONCE IV PUSH Last administered on 12/14/16 06:44; Start 12/14/16 at 06:15; Stop 12/14/16 at 06:16; Status DC Aspirin (Aspirin Chew) 162 mg ONCE ONCE CHEW Last administered on 12/14/16 06 :44; Start 12/14/16 at 06:15; Stop 12/14/16 at 06:16; Status DC Nitroglycerin (Nitroglycerin 2% Oint) 1 inch ONCE ONCE TOPICAL Last administered on 12/14/16 06:49; Start 12/14/16 at 06:15; Stop 12/14/16 at 06:16 ; Status DC Iohexol (Omnipaque 350 Inj) 70 ml STK-MED ONCE IV ; Start 12/14/16 at 06:35; Stop 12/14/16 at 06:36; Status DC Acetaminophen (Tylenol) 650 mg ONCE ONCE PO Last administered on 12/14/16 07: 08; Start 12/14/16 at 07:00; Stop 12/14/16 at 07:01; Status DC Furosemide (Lasix Inj) 40 mg DAILY IV PUSH ; Start 12/15/16 at 09:00; Stop at 09:00; Status DC Potassium Chloride (KCl) 20 meq DAILY PO Last administered on 12/15/16 10:14; Start 12/14/16 at 09:00 Atorvastatin Calcium (Lipitor) 80 mg DAILY PO Last administered on 12/15/16 10: 15; Start 12/14/16 at 09:00 EZETIMIBE (Zetia) 10 mg DAILY PO Last administered on 12/15/16 10:15; Start at 09:00 Losartan Potassium (Cozaar) 50 mg DAILY PO ; Start 12/14/16 at 09:00; Stop 12/14 at 09:37; Status DC Metoprolol Tartrate (Lopressor) 50 mg DAILY PO ; Start 12/14/16 at 09:00; Stop 12/14/16 at 09:37; Status DC Aspirin (Ecotrin Ec) 81 mg DAILY PO Last administered on 12/15/16 10:14; Start 12/15/16 at 09:00 Albuterol Sulfate (Albuterol Neb) 1.25 mg Q4HR NEB PRN NEB SHORTNESS OF BREATH ; Start 12/14/16 at 08:00 Enoxaparin Sodium (Lovenox Inj) 40 mg Q24H SQ Last administered on 12/14/16 10 :05; Start 12/14/16 at 09:00 Acetaminophen (Tylenol) 650 mg Q4H PRN PO FEVER/PAIN; Start 12/14/16 at 08:00 Furosemide (Lasix Inj) 40 mg BID IV PUSH ; Start 12/15/16 at 21:00 Losartan Potassium (Cozaar) 100 mg DAILY PO Last administered on 12/15/16 10:14 ; Start 12/15/16 at 09:00 Metoprolol Tartrate (Lopressor) 25 mg DAILY PO Last administered on 12/15/16 10 :15; Start 12/15/16 at 09:00 Acetaminophen/ Hydrocodone Bitart ([place] 5-325 Mg) 1 tab Q4H PRN PO HEADACHE/ PAIN Last administered on 12/14/16 13:42; Start 12/14/16 at 13:30 Furosemide (Lasix Inj) 40 mg ONCE ONCE IV PUSH Last administered on 12/14/16 21:18; Start 12/14/16 at 20:30; Stop 12/14/16 at 20:31; Status DC Furosemide (Lasix Inj) 40 mg NOW ONCE IV PUSH ; Start 12/15/16 at 01:45; Stop at 01:46; Status Cancel A/P Assessment and Plan A/P - CHF- acute systolic and diastolic echo with EF 45-50% continue with diuretics- - continue BB and losartan- -CAD- s/p CABG and stent placement continue aspirin, statin, BB and losartan cardiology consulted and plan for cardiac cath today. -hypertension; decreased metoprolol due to bradycardia -DVT prophylaxis with lovenox Discharge Planning possible dc home this afternoon- pending cardiac cath. see med list. f/u; pcp and cardiology upon discharge. d/w the patient and RN. Bradley Marroquin MD Dec 15, 2016 10:20
[2016-12-15] MEDS ORDERED: FURO1TAB60 PO (10:23)
[2016-12-15] MEDS ORDERED: METO25TA3 PO (10:23)
[2016-12-15] MEDS ORDERED: POTA20TA5 PO (10:23)
[2016-12-15] MEDS ORDERED: HEPARIN-NS/PF INJ 500 ML ONE (12:15)
[2016-12-15] MEDS ORDERED: MIDAZOLAM HCL 2 MG/2 ML VIAL ONE ×2 (12:19→12:38)
[2016-12-15] MEDS ORDERED: SODIUM CHLOR 0.9% 1000 ML INJ 1,000 ML IV SCH (13:00)
[2016-12-15] MEDS ORDERED: FURO20TA PO (13:14)
[2016-12-15] MEDS ORDERED: BACITRACIN OINT 0.9 GM PKT TOP ONE (13:15)
[2016-12-15] MEDS ORDERED: MISC INFORMATION XX ONE (13:15)
[2016-12-15] MEDS ORDERED: ATROPINE SULFATE 1 MG/ML VIAL IV PRN (13:15)
[2016-12-15] MEDS ORDERED: LIDOCAINE HCL 1% 50 ML VIAL INFIL PRN (13:15)
[2016-12-15] MEDS ORDERED: SODIUM CHLOR 0.9% 250 ML INJ 250 ML IV PRN (13:15)
[2016-12-15] MEDS ORDERED: METOCLOPRAMIDE HCL 10 MG/2 ML VIAL IV PRN (13:15)
[2016-12-15] MEDS ORDERED: ONDANSETRON HCL 4 MG/2 ML VIAL IV PRN (13:15)
[2016-12-15] MEDS ORDERED: IOHEXOL 350 MG/ML 100 ML BTL (for Cath Lab) OTHER ONE (13:24)
[2016-12-15] MEDS ORDERED: POTA10TA8 PO (13:43)
--- NOTE | 2016-12-15 13:44 | HHI.DCPOC ---
Discharge Care Plan Diagnosis: (1) New onset of congestive heart failure Your Health Problems Are: Leg Swelling Shortness of Breath Goals to Promote Your Health * To prevent worsening of your condition and complications * To maintain your health at the optimal level Directions to Meet Your Goals Take your medications as prescribed Follow your dietary instruction Follow activity as directed Keep your appointments as scheduled Take your immunizations and boosters as scheduled If your symptoms worsen call your PCP, if no PCP go to Urgent Care Center or Emergency Room Smoking is Dangerous to Your Health. Avoid second hand smoke Call the 24-hour hour crisis hotline for domestic abuse at Bradley Marroquin MD Dec 15, 2016 13:44
--- NOTE | 2016-12-15 13:45 | HHI.DS ---
Discharge Summary Admission Date Dec 14, 2016 at 09:46 Discharge Date: Dec 15, 2016 Admitting Diagnosis New onset CHF (1) New onset of congestive heart failure ICD Code: I50.9 Diagnosis: Principal Procedures cardiac cath Brief History - From Admission patient is a 66 y/o male with history of CAD- s/p CABG and stent placement who presented to ER with sob which started three days ago. he reported orthopnea and PND. he denies any fever, chills or cough although he says that he was sick with flu last week. he denies any recent weight gain but he says that he noticed worsening swelling of the legs recently. he denies any chest pain. he says that he had a stress test two weeks ago which was reportedly normal. he's being followed up by his bar tacker. CBC/BMP: 12/14/16 0435 12/14/16 0806 Significant Findings Laboratory Tests Test 12/14/16 12/14/16 12/14/16 12/14/16 04:35 06:00 08:06 10:30 Red Blood Count 4.44 MIL/MM3 (4.50-5.90) Monocytes (%) (Auto) 9.5 % (0.0-8.0) D-Dimer Quantitative (PE/DVT) 1.28 MG/L FEU (0.00-0.50) Chloride Level 110 MEQ/L 109 MEQ/L (98-107) (98-107) Estimat Glomerular Filtration 82 ML/MIN (>89) 86 ML/MIN (>89) Rate Random Glucose 109 MG/DL 112 MG/DL (74-106) (74-106) Calcium Level 8.0 MG/DL 8.3 MG/DL (8.5-10.1) (8.5-10.1) Total Bilirubin 1.3 MG/DL (0.2-1.0) Troponin I LESS THAN 0.02 LESS THAN 0.02 NG/ML NG/ML (0.02-0.05) (0.02-0.05) B-Type Natriuretic Peptide 441 PG/ML (0-100) Urine Mucus FEW /lpf (OCC) Test 12/14/16 18:00 Troponin I LESS THAN 0.02 NG/ML (0.02-0.05) PE at Discharge GENERAL: This is a well-nourished, well-developed patient, in no apparent distress. CARDIOVASCULAR: Regular rate and regular rhythm without murmurs, gallops, or rubs. RESPIRATORY: Clear to auscultation. Breath sounds equal bilaterally. No wheezes , rales, or rhonchi. GASTROINTESTINAL: Abdomen soft, non-tender, nondistended. Normal, active bowel sounds MUSCULOSKELETAL: Extremities without clubbing, cyanosis, or edema. NEURO: Alert & Oriented x4 to person, place, time, situation. Moves all ext x4 Hospital Course - CHF- acute systolic and diastolic echo with EF 45-50% continue with diuretics- - continue BB and losartan- -CAD- s/p CABG and stent placement continue aspirin, statin, BB and losartan cardiology consulted - s/p cardiac cath. -hypertension; decreased metoprolol due to bradycardia -DVT prophylaxis with lovenox Pt Condition on Discharge: Good Discharge Disposition: Discharge Home Discharge Time: <= 30 minutes Discharge Instructions DIET: Follow Instructions for: Heart Healthy Diet Activities you can perform: Regular-No Restrictions Follow up Referrals: Cardiology PCP Follow-up New Medications: Furosemide (Furosemide) 20 Mg Tab 20 MG PO DAILY chf #30 Ref 0 TAB Potassium Chloride ER (Potassium Chloride CR) 10 Meq Tab 10 MEQ PO DAILY electrolyte supplement Days 30 Ref 0 TAB Metoprolol Tartrate (Metoprolol Tartrate) 25 Mg Tab 25 MG PO DAILY cad Days 30 Ref 0 TAB Continued Medications: Aspirin DR (Aspir-Low) 81 Mg Tabdr Atorvastatin (Lipitor) 80 Mg Tab 80 MG PO DAILY Cholesterol Management #30 Ref 0 TAB Ezetimibe (Zetia) 10 Mg Tab 10 MG PO DAILY #30 Ref 0 TAB Losartan (Losartan) 50 Mg Tab 50 MG PO DAILY Blood Pressure Management #30 Ref 0 TAB Discontinued Medications: Aspirin DR (Aspir-81) 81 Mg Tabdr 81 PO DAILY Metoprolol Tartrate (Lopressor) 50 Mg Tab 50 MG PO DAILY #30 Ref 0 TAB Valsartan (Diovan) 80 Mg Tab 80 MG PO DAILY #30 Ref 0 TAB Bradley Marroquin MD Dec 15, 2016 13:45
--- NOTE | 2016-12-15 14:14 | MA ---
cc: MAY BARTON DATE: 12/15/2016 PROCEDURE PERFORMED 1. Fluoroscopy with interpretation. 2. Coronary angiography. 3. Coronary bypass graft angiography. METHOD The risks, benefits and alternatives were discussed with the patient. The patient understood and consented to the procedure. The patient was brought to the catheterization lab and placed on the catheterization table. The right groin was prepped and draped in a sterile fashion. The right groin was anesthetized with 2% lidocaine. The right common femoral artery is cannulated and a 5 Vietnamese, 11 cm sheath was placed without difficulty. CORONARY ANGIOGRAPHY 1. The left main coronary was short but angiographically normal. 2. The left anterior descending coronary has minor luminal irregularities in the proximal segment. At the level of the bifurcation the diagonal and septal cushion maker hand is 100% occluded. There is a moderate-sized diagonal branch that has about a 50% stenosis proximally. There may be a second diagonal branch which is not visualized and occluded. 3. The left circumflex is occluded in the proximal segment. 4. The right coronary has stents present which appear to be patent. There are minor luminal irregularities. The posterior descending branch is patent. CORONARY BYPASS GRAFT ANGIOGRAPHY 1. The saphenous vein graft to the left anterior descending coronary is widely patent. The left anterior descending coronary is a smaller caliber size but it extends to the apex. 2. The saphenous vein graft to the obtuse marginal branch is widely patent. 3. The left internal mammary to the diagonal branch is also patent. The anastomosis is not well-visualized but there appears to be no significant obstruction. There is MICHA-III flow. CONCLUSIONS 1. Severe [place] two-vessel coronary artery disease. 2. Three of three coronary bypass grafts are widely patent. PLAN Will continue with current medical therapy. CHF is likely due to volume overload secondary to salt intake. He can follow-up with his day camp counselor, Dr. Thompson [place]. We have burred a copy of the angiogram for him to take to visualize for future reference. MD DIANE Martinez/EBONY /1:05 PM /1:54 PM
[2016-12-16] MEDS ORDERED: FUROSEMIDE 20 MG TAB PO SCH (09:00)
== END 2016-12-15 17:55 | disposition home or self-care (01) | DRG 287 ==
LOC: NEPC 04:11 → NEDA 07:09 → OBSVTOIN 09:46 → N04B 15:33 → UNDODISIN 12-15 14:30
PROVIDERS: ADMIT Internal Medicine; ATTEND Internal Medicine
PROC: B2131ZZ Fluoroscopy of Multiple Coronary Artery Bypass Grafts using Low Osmolar Contrast (ICD-10-PCS; 2016-12-15)
PROC: B2181ZZ Fluoroscopy of Left Internal Mammary Bypass Graft using Low Osmolar Contrast (ICD-10-PCS; 2016-12-15)
PROC: B2111ZZ Fluoroscopy of Multiple Coronary Arteries using Low Osmolar Contrast (ICD-10-PCS; principal; 2016-12-15 12:30)
DX: I50.41 Acute combined systolic (congestive) and diastolic (congestive) heart failure (principal); I10 Essential (primary) hypertension; Z95.1 Presence of aortocoronary bypass graft; I25.10 Atherosclerotic heart disease of native coronary artery without angina pectoris; Z95.5 Presence of coronary angioplasty implant and graft; R00.1 Bradycardia, unspecified; Z79.82 Long term (current) use of aspirin; Z87.891 Personal history of nicotine dependence; I25.2 Old myocardial infarction; Z91.11 Patient's noncompliance with dietary regimen
CPT/HCPCS: 71010; 71275; 80048; 80053; 81001; 82550; 83690; 83735; 83880; 84484; 85025; 85379; 85610; 85730; 93005; 93306; 93454; 96374; C1760; C1769; C1893; G0269; J1644; J1650; J1940; J2250; J3010; J7030; Q9967